=== PATIENT | male | born 1985 | race Caucasian/White ===

== ENCOUNTER 2019-08-18 09:14 | Emergency (ER) | payer BC ==
[~2019-08-18] VITALS: Ht 190.5 cm; Wt 100.7 kg
[2019-08-18] MEDS ORDERED: KETOROLAC TROMETH 30 MG/ML 1ML VIAL IV ONE (10:15)
[2019-08-18] MEDS ORDERED: SODIUM CHLORIDE 0.9% 1,000 ML IV ONE (10:15)
[2019-08-18] MEDS ORDERED: METOCLOPRAMIDE HCL 5MG/ml INJ 2ml VIAL IV ONE (10:15)
[2019-08-18 10:22] LABS: Urine Bacteria NONE SEEN /hpf (None Seen); Urine Blood 3+ /uL (Negative); Urine Mucus FEW (None Seen); Urine Specific Gravity 1.024 (1.001-1.035); Urine WBC 101 /hpf (0 - 3)
[2019-08-18] MEDS ORDERED: SODIUM CHLORIDE 0.9% 1,000 ML IVB ONE (10:22)
[2019-08-18 10:46] LABS: Basophils # (auto) 0.1 uL; Eosinophils # (auto) 0.1 uL; Lymphocytes # (auto) 1.6 uL; White Blood Cell 11.5 10^3/uL (4.4-10.8)
[2019-08-18 10:47] LABS: Albumin 4.5 g/dL (3.4-5.0); Basophils % (auto) 0.6 % (0.0-2.0); Calcium 9.8 mg/dL (8.5-10.1); Eosinophils % (auto) 1.1 % (0.0-7.0); Hematocrit 51.6 % (41.0-53.0); Hemoglobin 18.1 g/dL (13.5-17.5); Lymphocytes % (auto) 13.8 % (10.0-50.0); Mean Corpuscular Hemoglobin 30.5 pg (28.0-32.0); Mean Corpuscular Volume 87.3 fL (80.0-100.0); Monocytes # (auto) 0.9 uL; Monocytes % (auto) 7.6 % (0.0-12.0); Neutrophils # (auto) 8.9 uL; Neutrophils % (auto) 76.9 % (37.0-80.0); Nucleated Red Blood Cells % 0.2 %; Platelet Count (auto) 270 10^3/uL (140-450); Potassium 3.4 mmol/L (3.5-5.1); Red Blood Cells 5.91 10^6/uL (4.5-5.90)
[2019-08-18 10:52] LABS: Bilirubin, Total 1.8 mg/dL (0.2-1.0); Total Protein 8.6 g/dL (6.4-8.2)
[2019-08-18 11:36] LABS: Magnesium 1.9 mg/dL (1.6-2.6)
[2019-08-18] MEDS ORDERED: HYDROmorphone HCL 2 MG/ML VL IV ONE (12:45)
[2019-08-18] MEDS ORDERED: PROMETHAZINE HCL 25 MG/ML 1ML IV ONE (12:45)
[2019-08-18] MEDS ORDERED: TAMSULOSIN HYDROCHLORIDE 0.4 MG CAP PO ONE (12:45)
[2019-08-18] MEDS ORDERED: POTASSIUM EFFERVESENT TAB 25 MEQ PO ONE (13:15)
[2019-08-18] MEDS ORDERED: cefTRIAXone 1GM/50ML D5W 50 ML IV ONE (13:15)
[2019-08-18 14:15] VITALS: BP 112/79
== END 2019-08-18 15:38 | disposition home or self-care (01) ==
LOC: ER 09:14
DX: N13.2 Hydronephrosis with renal and ureteral calculous obstruction (principal); N39.0 Urinary tract infection, site not specified; E87.6 Hypokalemia; F12.10 Cannabis abuse, uncomplicated; Z87.442 Personal history of urinary calculi
CPT/HCPCS: 36415; 74176; 80053; 81001; 83690; 83735; 85025; 96365; 96375; 99284; J0696; J1170; J1885; J2550; J2765; J7030